=== PATIENT | female | born 1980 | race Hispanic/Latino ===

== ENCOUNTER 2018-05-26 07:04 | Day surgery (SDC) | payer BC ==
[2018-05-21 14:56] LABS: BASOPHILS % (AUTO) 1.3 % (0.0-5.0); EOSINOPHILS % (AUTO) 1.9 % (0.0-8.0); LYMPHOCYTES % (AUTO) 35.6 % (21.0-51.0); MEAN CORPUSCULAR HEMOGLOBIN 31.1 pg (27.0-33.0); MEAN CORPUSCULAR HGB CONC 34.1 g/dL (32.0-36.0); MEAN CORPUSCULAR VOLUME 91.2 fL (79-99); MONOCYTES % (AUTO) 9.6 % (3.0-13.0); NEUTROPHILS % (AUTO) 51.6 % (40.0-77.0); NUCLEATED RED BLOOD CELLS 0.1 % (0.0-0.19); PLATELET COUNT (AUTO) 251 K/uL (130-400); RED CELL DISTRIBUTION WIDTH 13.4 % (11.0-15.5); WHITE BLOOD COUNT (AUTO) 5.1 K/uL (4.8-10.8)
[2018-05-21 15:22] VITALS: BP 99/64
[~2018-05-26] VITALS: Ht 175.3 cm; Wt 64.0 kg
[2018-05-26] VITALS (20 sets, daily range): BP systolic 84–110; BP diastolic 41–75
[~2018-05-26 07:04] MED LIST: BUSP5TAB3 PO; DESO1TAB10 PO
[2018-05-26] MEDS ORDERED: MIDAZOLAM HCL 1 MG/ML 2ML VIAL ONE (07:36)
[2018-05-26] MEDS ORDERED: LIDOCAINE PF 2% 5ML ABBOJECT ONE (07:36)
[2018-05-26] MEDS ORDERED: DEXAMETHASONE SOD PHOSPHATE 10MG/ML 1ML VIAL ONE (07:36)
[2018-05-26] MEDS ORDERED: ONDANSETRON HCL 4 MG/2 ML VIAL ONE (07:37)
[2018-05-26] MEDS ORDERED: PROPOFOL 10 MG/ML 20ML VIAL IV ONE (07:37)
[2018-05-26] MEDS ORDERED: GLYCOPYRROLATE 1 MG/5 ML SYRINGE ONE (07:37)
[2018-05-26] MEDS ORDERED: NEOSTIGMINE 5MG/5ML SYR IV ONE (07:37)
[2018-05-26] MEDS ORDERED: ROCURONIUM 10MG/1ML SYR 10 MG/ML ML ONE (07:37)
[2018-05-26] MEDS ORDERED: FENTANYL CITRATE PF 50 MCG/1 ML 2ML VIAL ONE (07:37)
[2018-05-26] MEDS: LACTATED RINGERS 1000ML 1,000 ML IV SCH ×2 (07:53→08:04)
[2018-05-26] MEDS: CEFAZOLIN SODIUM 1 GM VIAL IVP PRN ×3 (07:54→08:05)
[2018-05-26] MEDS ORDERED: MEPERIDINE-PF 25 MG/ML SYG IV SCH (09:00)
[2018-05-26] MEDS ORDERED: MEPERIDINE-PF 25 MG/ML SYG ONE (09:17)
[2018-05-26] MEDS ORDERED: ACETAMINOPHEN-CODEINE 300/30MG TAB ONE (10:41)
[2018-05-26] MEDS ORDERED: ACETAMINOPHEN-CODEINE 300/30MG TAB PO PRN (11:15)
== END 2018-05-26 12:05 | disposition home or self-care (01) ==
LOC: DAH 07:04
PROVIDERS: ATTEND Specialist
DX: Z30.2 Encounter for sterilization (principal); N83.201 Unspecified ovarian cyst, right side; F41.9 Anxiety disorder, unspecified; Z98.890 Other specified postprocedural states; Z79.899 Other long term (current) drug therapy; J45.909 Unspecified asthma, uncomplicated
CPT/HCPCS: 36415 ×2; 49322; 58671; 84702; 85025; 86850 ×2; 86900 ×2; 86901 ×2; A4215; A4218; A4264; A4351; A4510; A4600; C1769 ×2; J0690; J1100; J2001; J2175; J2250; J2405; J2704; J2710; J3010; J3490; J7120